=== PATIENT | female | born 1965 | race Caucasian/White ===

== ENCOUNTER → 2018-06-03 | Outpatient (CLI) | payer BC ==
[~2018-06-03] MED LIST: THYR60TA PO
[2018-06-03 09:59] LABS: BASOPHILS # (AUTO) 0.02 x10^3/uL (0-0.1); BASOPHILS % (AUTO) 0 % (0-1); EOSINOPHILS # (AUTO) 0.04 x10^3/uL (0-0.4); EOSINOPHILS % (AUTO) 1 % (1-7); LYMPHOCYTES # (AUTO) 1.14 x10^3/uL (1-3.4); LYMPHOCYTES % (AUTO) 24 % (22-44); MD NO; MEAN CORPUSCULAR HEMOGLOBIN 25.2 pg (27.0-34.8); MEAN CORPUSCULAR HGB CONC 32.6 g/dL (32.4-35.8); MEAN CORPUSCULAR VOLUME 77.5 fL (80-100); MEAN PLATELET VOLUME 10.1 fL (7.4-10.4); MONOCYTES # (AUTO) 0.28 x10^3/uL (0.2-0.8); MONOCYTES % (AUTO) 6 % (2-9); NEUTROPHILS # (AUTO) 3.36 x10^3/uL (1.8-6.8); NEUTROPHILS % (AUTO) 70 % (42-75); PLATELET COUNT 203 x10^3/uL (130-400); RED BLOOD COUNT 4.42 x10^6/uL (3.82-5.3); RED CELL DISTRIBUTION WIDTH 18.9 % (9.6-15.2)
[2018-06-03 10:06] LABS: MICROSCOPIC NOT IND
[2018-06-03 10:08] LABS: CULTURE INDICATED? NO
[2018-06-03 10:13] LABS: ALBUMIN 3.9 g/dL (3.4-5.0); ANION GAP 8 mmol/L (5-15); CALCIUM 9.1 mg/dL (8.5-10.1); CHLORIDE 106 mmol/L (98-107)
[2018-06-03 10:20] LABS: ALANINE AMINOTRANSFERASE 40 U/L (12-78); ALKALINE PHOSPHATASE 84 U/L (45-117); BILIRUBIN,TOTAL 0.7 mg/dL (0.2-1.0); TOTAL PROTEIN 7.8 g/dL (6.4-8.2)
== END | disposition home or self-care (01) ==
LOC: STAR 08:58
PROVIDERS: ATTEND Obstetrics & Gynecology
DX: Z01.818 Encounter for other preprocedural examination (principal); D25.9 Leiomyoma of uterus, unspecified; N92.0 Excessive and frequent menstruation with regular cycle
CPT/HCPCS: 36415; 80053; 81003; 84702; 85025; 93005

== ENCOUNTER 2018-06-09 05:18 | Day surgery (SDC) | payer BC ==
[2018-06-03 09:22] VITALS: BP 137/84
[~2018-06-09] VITALS: Ht 162.6 cm; Wt 86.4 kg
[2018-06-09] MEDS ORDERED: LACTATED RINGERS 1,000 ML IV SCH (05:48)
[2018-06-09] MEDS ORDERED: GABAPENTIN 300 MG CAPSULE PO ONE ×2 (06:00→06:30)
[2018-06-09] MEDS ORDERED: ACETAMINOPHEN 500 MG TABLET PO ONE ×2 (06:00→06:30)
[2018-06-09 06:21] LABS: HCG UR SG 1.019 (1.003-1.030)
[2018-06-09] MEDS ORDERED: SCOPOLAMINE PATCH, 1.5MG PATCH.TD72 TD ONE (07:05)
[2018-06-09] MEDS ORDERED: FAMOTIDINE 20 MG TABLET ONE (07:05)
[2018-06-09] MEDS ORDERED: BUPIVACAINE/PF-EPI 0.25% 1:200K ONE (07:10)
[2018-06-09] MEDS ORDERED: FLUORESCEIN SODIUM 500 MG/5 ML ONE (07:10)
[2018-06-09] MEDS ORDERED: BUPIVACAINE 0.25% ONE (07:10)
[2018-06-09] MEDS ORDERED: FENTANYL PF 250 MCG/5ML ONE (07:11)
[2018-06-09] MEDS ORDERED: MIDAZOLAM 1 MG/ML, 2ML ONE (07:11)
[2018-06-09] MEDS ORDERED: PROPOFOL 10 MG/ML, 20ML ONE ×2 (07:13)
[2018-06-09] MEDS ORDERED: ROCURONIUM 10MG/ML,5ML ONE (07:14)
[2018-06-09] MEDS ORDERED: SUCCINYLCHOLINE 20 MG/ML, 10ML ONE (07:14)
[2018-06-09] MEDS ORDERED: DEXAMETHASONE 4 MG/ML, 1ML ONE ×2 (07:45)
[2018-06-09] MEDS ORDERED: FENTANYL PF 100 MCG/2ML IV PRN (08:30)
[2018-06-09] MEDS ORDERED: OXYcodone 5 MG/5 ML ORAL.SOL UDC PO PRN (08:30)
[2018-06-09] MEDS ORDERED: HYDROmorphone 1 MG/ML, 1ML IV PRN (08:30)
[2018-06-09] MEDS ORDERED: PROMETHAZINE 25 MG/ML, 1ML IV PRN (08:30)
[2018-06-09] MEDS ORDERED: KETOROLAC 30 MG/1 ML ONE ×2 (08:46)
[2018-06-09] MEDS ORDERED: ONDANSETRON 2MG/ML, 2ML ONE ×2 (08:46→11:51)
[2018-06-09] MEDS ORDERED: NEOSTIGMINE 1 MG/ML, 10ML ONE (08:54)
[2018-06-09] MEDS ORDERED: GLYCOPYRROLATE 0.2MG/1ML, 5ML ONE (08:57)
[2018-06-09] MEDS ORDERED: OXYcodone/APAP 5/325MG TABLET PO PRN (12:00)
[2018-06-09] MEDS ORDERED: ONDANSETRON 2MG/ML, 2ML IVPush PRN (12:00)
[2018-06-09] MEDS ORDERED: PROMETHAZINE 25 MG SUPP PR ONE (12:48)
== END 2018-06-09 17:00 | disposition home or self-care (01) ==
LOC: OUT 05:18
PROVIDERS: ATTEND Obstetrics & Gynecology
DX: N92.0 Excessive and frequent menstruation with regular cycle (principal); D25.0 Submucous leiomyoma of uterus; N84.0 Polyp of corpus uteri; D64.9 Anemia, unspecified; K21.9 Gastro-esophageal reflux disease without esophagitis; Z98.890 Other specified postprocedural states; Z87.891 Personal history of nicotine dependence; Z88.8 Allergy status to other drugs, medicaments and biological substances
CPT/HCPCS: 58552; 81025; 88307; J0330; J1100; J1885; J2250; J2405; J2704; J2710; J3010; J3490; J7120